=== PATIENT | male | born 1955 | race Caucasian/White ===

== ENCOUNTER 2017-05-05 15:35 | Emergency (ER) | payer BC ==
[2017-05-05 15:51] VITALS: BP 127/62
--- NOTE | 2017-05-05 16:16 | UC ---
Dizzy HPI HPI Summary: [ End ] Advised to go to ED for further work up 61 year old male with history of previous DM-2, gastric bypass, renal stones, family history of CAD presents with 2 weeks of cough, congestion, post nasal drip, sore throat. His mother in the hospital for pneumonia and other reasons at this time. Today patient was walking and felt dizzy, started to sweat (but has had chills the past few days) and chest tightness. Denies CP , palpitations , or someone sitting on chest. Denies previous cardiac issues. Has had numerous stress tests in the past and normal . He has had pneumonia in the past and it feels like that at this time. Mother with history of triple bypass at ago 60 and has over 40 stents per patient - History Of Current Complaint Chief Complaint: UCGeneralIllness Stated Complaint: UPPER RESPIRATORY COMPLAINT COUGH Time Seen by Provider: 05/05/17 15:58 Hx Obtained From: Patient Onset/Duration: Sudden Onset, Gradual Onset Timing: Intermittent Episode Lasting Severity Initially: Mild Severity Currently: Moderate Character: Lightheaded, Weak Aggravating Factor(s): Exertion Alleviating Factor(s): Rest Associated Signs And Symptoms: Positive: Negative, Diaphoresis, SOB - Risk Factors Cardiac Risk Factors: Diabetes, Elevated Lipids, Family History - Allergies/Home Medications Allergies/Adverse Reactions: Allergies Allergy/AdvReac Type Severity Reaction Status Date / Time NSAIDs AdvReac See Comment Verified 07/28/16 13:28 Home Medications: Home Medications Dextromethorphan-Phenylephrine [Tylenol Cold Multi-Sympto] 1 liq PO DAILY PRN [History Confirmed 05/05/17] PMH/Surg Hx/FS Hx/Imm Hx Previously Healthy: Yes Endocrine History: Diabetes - Surgical History Surgical History: Yes Surgery Procedure, Year, and Place: cholecystectomy 1993-. gastric bypass 2007 - Family History Known Family History: Positive: Cardiac Disease, Hypertension - Social History Alcohol Use: None Substance Use Type: Prescribed Smoking Status (MU): Never Smoked Tobacco Have You Smoked in the Last Year: No Review of Systems Constitutional: Chills, Fatigue ENT: Sore Throat, Sinus Congestion Respiratory: Shortness Of Breath Cardiovascular: Other - chest pressure All Other Systems Reviewed And Are Negative: Yes Physical Exam Triage Information Reviewed: Yes Appearance: Well-Appearing, No Pain Distress, Well-Nourished Vital Signs: Initial Vital Signs Temp 98 F 05/05/17 15:43 Pulse 88 05/05/17 15:43 Resp 18 05/05/17 15:43 BP 127/62 05/05/17 15:43 Pulse Ox 100 05/05/17 15:43 Vital Signs Reviewed: Yes Eye Exam: Normal ENT Exam: Normal Dental Exam: Normal Neck exam: Normal Neck: Positive: 1 Respiratory Exam: Normal Cardiovascular Exam: Normal Abdominal Exam: Normal Musculoskeletal Exam: Normal Neurological Exam: Normal Psychological Exam: Normal Skin Exam: Normal Diagnostics - EKG Cardiac Rhythm: Sinus: Normal, Other Rhythm: Normal - RBBB and inferior Q waves ii,iii,avf ST Segment: Normal Dizzy Course/Dx - Course Course Of Treatment: With history of DM-2 before gastric bypass, family history of CABG, and potential EKG changes will advise ED for further eval. Pt declined to go by ambulance and went AMA by car to ED. - Differential Dx/Diagnosis Provider Diagnoses: chest pain atypical - Physician Notifications Discussed Patient Care With: dr downing - dr downing at [place] [facility] at 1700 Discharge - Discharge Plan Condition: Guarded Disposition: AGAINST MEDICAL ADVICE Referrals: Noel Aponte MD [Primary Care Provider] - As Soon As Possible (After a thorough and more complete evaluation in the ED )
--- NOTE | 2017-05-05 16:42 | RAD ---
INDICATION: Midsternal chest tightness. Shortness of breath, cough, dizziness. COMPARISON: No relevant prior exams available on the [facility] PACS for comparison. TECHNIQUE: Dual energy PA and routine lateral views of the chest were obtained. REPORT: Mild eventration of the LEFT hemidiaphragm anteriorly. Clear lungs and pleural spaces. Negative for pneumothorax. The heart, pulmonary vasculature, and mediastinal contours are unremarkable. Unremarkable osseous structures for age. IMPRESSION: No evidence for acute intrathoracic disease.
== END 2017-05-05 17:08 | disposition left against medical advice (07) ==
LOC: UCCORT 15:35
DX: R07.89 Other chest pain (principal); R05 Cough; R09.82 Postnasal drip; J02.9 Acute pharyngitis, unspecified; R42 Dizziness and giddiness; R53.83 Other fatigue; E11.9 Type 2 diabetes mellitus without complications; Z87.442 Personal history of urinary calculi; Z98.84 Bariatric surgery status; Z90.49 Acquired absence of other specified parts of digestive tract; Z88.6 Allergy status to analgesic agent
CPT/HCPCS: 71020; 93005; 99212; G0463

== ENCOUNTER 2017-09-08 10:09 | Emergency (ER) | payer BC | END 2017-09-08 11:17 | disposition left against medical advice (07) | LOC: UCCORT 10:09 | DX: J02.9 Acute pharyngitis, unspecified (principal); Z53.21 Procedure and treatment not carried out due to patient leaving prior to being seen by health care provider ==

== ENCOUNTER 2017-09-08 18:18 | Emergency (ER) | payer BC ==
[2017-09-08 18:53] VITALS: BP 147/92
--- NOTE | 2017-09-08 19:10 | ED ---
Throat Pain/Nasal Congestion - HPI Summary HPI Summary: 17 yr old male with the complaint of sore throat. Onset of symptoms about 5 days ago, and associated with mild coughing, and mild hoarseness to voice. He denies runny nose or post nasal drip. Denies sinus pressure. He does state he has ear pain bilateral that seems to be coming from his sore throat. - History of Current Complaint Chief Complaint: UCRespiratory Time Seen by Provider: 09/08/17 18:52 - Allergies/Home Medications Allergies/Adverse Reactions: Allergies Allergy/AdvReac Type Severity Reaction Status Date / Time NSAIDs AdvReac See Comment Verified 09/08/17 18:53 PMH/Surg Hx/FS Hx/Imm Hx Previously Healthy: Yes Cardiovascular History: Reports: Hx Hypertension Psychiatric History: Reports: Hx Anxiety - panic attackes - Surgical History Surgery Procedure, Year, and Place: cholecystectomy 1993-. gastric bypass 2007 Infectious Disease History: Yes Infectious Disease History: Reports: Hx Shingles - center of abdomen, base of sternum Denies: Hx Clostridium Difficile, Hx Hepatitis, Hx Human Immunodeficiency Virus (HIV), Hx of Known/Suspected MRSA, Hx Tuberculosis, Hx Known/Suspected VRE , Hx Known/Suspected VRSA, History Other Infectious Disease, Traveled Outside the [place] in Last 30 Days - Family History Known Family History: Positive: Cardiac Disease, Hypertension - Social History Alcohol Use: None Substance Use Type: Reports: Prescribed Smoking Status (MU): Never Smoked Tobacco Have You Smoked in the Last Year: No Review of Systems Constitutional: Negative Positive: Sore Throat, Ear Ache Positive: Cough All Other Systems Reviewed And Are Negative: Yes Physical Exam Triage Information Reviewed: Yes Vital Signs On Initial Exam: Initial Vitals Temp Pulse Resp BP Pulse Ox 98.5 F 100 18 147/92 100 09/08/17 18:48 09/08/17 18:48 09/08/17 18:48 09/08/17 18:48 09/08/17 18:48 Vital Signs Reviewed: Yes Appearance: Positive: Well-Appearing, No Pain Distress Skin: Positive: Warm, Skin Color Reflects Adequate Perfusion Head/Face: Positive: Normal Head/Face Inspection Eyes: Positive: EOMI ENT: Positive: Pharyngeal erythema, TMs normal. Negative: Muffled voice, Hoarse voice, Sinus tenderness Neck: Positive: Supple, Nontender Respiratory/Lung Sounds: Positive: Clear to Auscultation, Breath Sounds Present Cardiovascular: Positive: RRR. Negative: Murmur Abdomen Description: Positive: Nontender Musculoskeletal: Positive: Strength/ROM Intact Neurological: Positive: Sensory/Motor Intact, Alert, Oriented to Person Place, Time, CN Intact II-III Psychiatric: Positive: Normal - Kamrar Coma Scale Best Eye Response: 4 - Spontaneous Best Motor Response: 6 - Obeys Commands Best Verbal Response: 5 - Oriented Diagnostics - Vital Signs Vital Signs Temp Pulse Resp BP Pulse Ox 09/08/17 18:48 98.5 F 100 18 147/92 100 - Laboratory Lab Statement: Any lab studies that have been ordered have been reviewed, and results considered in the medical decision making process. EENT Course/Dx - Course Course Of Treatment: 62 male with strep throat. - Diagnoses Provider Diagnoses: Strep pharyngitis, Hypertension Discharge - Discharge Plan Condition: Good Disposition: HOME Prescriptions: Amoxicillin PO (*) [Amoxicillin 500 MG CAP*] 500 mg PO TID #30 cap Patient Education Materials: Pharyngitis (ED), Hypertension (ED) Referrals: Noel Aponte MD [Primary Care Provider] -
[2017-09-08] MEDS ORDERED: Amoxicillin PO (*) 500 MG CAP PO ONE (19:37)
== END 2017-09-08 19:53 | disposition home or self-care (01) ==
LOC: UCCORT 18:18
DX: J02.0 Streptococcal pharyngitis (principal); I10 Essential (primary) hypertension; Z88.6 Allergy status to analgesic agent
CPT/HCPCS: 87502; 87651; 99212; A9270-GY; G0463

== ENCOUNTER 2017-09-24 15:32 | Emergency (ER) | payer BC ==
[2017-09-24 15:54] VITALS: BP 137/72
--- NOTE | 2017-09-24 17:22 | UC ---
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 " Here w/ his , speech pathologist. Most of history is provided by his . He has been "acutely" sick since 09/04/ was dx'd with pos strep at that time and sx resolved w/ amox. -woke up this morning w/ swollen uvula that was stuck to the base of his tongue. feels totally different than strep. no fevers/chills. no cough. no wheezing. no sinus pain/pressure. no n/v/d. -he is on lisinipril, no lip or tongue swelling. -c/o fatigue that has been going on for months. specifically requested PCP to do labs (results as above) in Jul. -psychiatrist started testosterone for level of 240. his anx/dep and psych sx signfiicantly improved as did fatigue. But insists somethinghappened 09/04 that caused something to change in him. - History of Current Complaint Chief Complaint: UCGeneralIllness Stated Complaint: SORE THROAT Time Seen by Provider: 09/24/17 16:20 - Allergies/Home Medications Allergies/Adverse Reactions: Allergies Allergy/AdvReac Type Severity Reaction Status Date / Time NSAIDs AdvReac See Comment Verified 09/24/17 15:53 PMH/Surg Hx/FS Hx/Imm Hx - Surgical History Surgical History: Yes Surgery Procedure, Year, and Place: cholecystectomy 1993-. gastric bypass 2007 - Family History Known Family History: Positive: Cardiac Disease, Hypertension - Social History Alcohol Use: None Substance Use Type: Prescribed Smoking Status (MU): Never Smoked Tobacco Have You Smoked in the Last Year: No Review of Systems Constitutional: Fatigue Skin: Negative Eyes: Negative ENT: Other - swollen uvula Respiratory: Negative Cardiovascular: Negative Gastrointestinal: Negative Genitourinary: Negative Motor: Negative Neurovascular: Negative Musculoskeletal: Negative Neurological: Negative Psychological: Negative Is Patient Immunocompromised?: No All Other Systems Reviewed And Are Negative: Yes Physical Exam Triage Information Reviewed: Yes Appearance: Well-Appearing, No Pain Distress, Well-Nourished - head down, ? asleep when I walk into exam room. Vital Signs: Initial Vital Signs Temp 98.5 F 09/24/17 15:49 Pulse 99 09/24/17 15:49 Resp 16 09/24/17 15:49 BP 137/72 09/24/17 15:49 Pulse Ox 100 09/24/17 15:49 Vital Signs Reviewed: Yes Eye Exam: Normal ENT: Positive: Pharyngeal erythema - + mild-mod swollen uvula w/o exudate. no tongue, lip or face swelling., TMs normal, Tonsillar exudate, Uvula midline. Negative: Tonsillar swelling, Hoarse voice, Sinus tenderness Dental Exam: Normal Neck exam: Normal Neck: Positive: Supple, Nontender, No Lymphadenopathy Respiratory: Positive: Lungs clear, Normal breath sounds, No respiratory distress, No accessory muscle use. Negative: Crackles, Rhonchi, Stridor, Wheezing Cardiovascular: Positive: RRR, No Murmur, Pulses Normal Abdomen Description: Positive: Nontender, Soft Musculoskeletal Exam: Normal Neurological Exam: Normal Psychological Exam: Normal Skin Exam: Normal Throat Pain/Nasal Course/Dx - Course Course Of Treatment: Discussed w /them the possibility of angioedema d/t lisinipril depsite the fact that he has been on it for years. he does mention that this has occured in past. I asked that they mention this to PCP and give serious consideration to d/c if not resolved or if lips/tongue/face swells or uvulitis recurs. They understood me well and are appreciative of this. -very unlikely to be mono in this age, but will test as it was unlikely to have strep at his age as well. they are pleased with this. -consider endocrine referral for fatigue and possibly eval for heart conditions ( he denies any CAD or DM). states that his psychiatric condition is the best it has been in years. - Differential Dx/Diagnosis Differential Diagnosis/HQI/PQRI: Laryngitis, Mononucleosis, Pharyngitis, URI Provider Diagnoses: uvulitis, fatigue Discharge - Discharge Plan Condition: Stable Disposition: HOME Prescriptions: Amoxicillin/Clavulanate TAB* [Augmentin TAB 875*] 875 mg PO BID #20 tab Patient Education Materials: Uvulitis (ED), Fatigue (ED) Referrals: Noel Aponte MD [Primary Care Provider] - 5 Days Additional Instructions: Citrus test is ordered. You can call for the results in a few days. You reported that your bloodwork including thyroid is normal, but you have known anemia. Please follow up with your PC for further follow up on the symptoms.
== END 2017-09-24 17:52 | disposition home or self-care (01) ==
LOC: UCCORT 15:32
DX: K12.2 Cellulitis and abscess of mouth (principal); R53.83 Other fatigue; Z88.6 Allergy status to analgesic agent
CPT/HCPCS: 36415; 86308; 86664; 86665; 99212; G0463

== ENCOUNTER 2018-03-28 18:38 | Emergency (ER) | payer BC ==
[2018-03-28 19:18] VITALS: BP 138/84
[2018-03-28] MEDS ORDERED: predniSONE TAB* 20 MG PO ONE (19:41)
--- NOTE | 2018-03-29 22:24 | UC ---
Skin Complaint HPI - HPI Summary HPI Summary: The patient is a 62 yo male with 13-15 insect bites that occurred while hiking a couple of days ago Itchy no f/c no tick bite no JACOB or myalgias - History of Current Complaint Chief Complaint: UCSkin Time Seen by Provider: 03/28/18 19:21 Stated Complaint: SKIN COMPLAINT Hx Obtained From: Patient Onset/Duration: Gradual Onset, Lasting Days Timing: Constant Onset Severity: Mild Current Severity: Mild Pain Intensity: 3 Pain Scale Used: 0-10 Numeric Location: Other - various Character: Swelling, Pruritus, Redness, Raised Associated Signs & Symptoms: Positive: Negative Related History: Insect Bite/Sting - Allergy/Home Medications Allergies/Adverse Reactions: Allergies Allergy/AdvReac Type Severity Reaction Status Date / Time NSAIDS (Non-Steroidal Allergy See Comment Verified 03/28/18 19:04 Anti-Inflamma Home Medications: Home Medications ALPRAZolam TAB* [Xanax TAB*] 1 tab TID PRN 03/28/18 [History Confirmed 03/28/18] ARIPiprazole TAB* [Abilify TAB*] 5 mg BEDTIME 03/28/18 [History Confirmed 03/28] OXcarbazepine TAB(*) [Trileptal 300 mg TAB(*)] 450 mg BEDTIME 03/28/18 [History Confirmed 03/28/18] Propranolol TAB* [Inderal TAB*] 60 mg BEDTIME 03/28/18 [History Confirmed ] Review of Systems Constitutional: Negative Skin: Negative Eyes: Negative ENT: Negative Respiratory: Negative Cardiovascular: Negative Gastrointestinal: Negative Genitourinary: Negative Motor: Negative Neurovascular: Negative Musculoskeletal: Negative Neurological: Negative Psychological: Negative Is Patient Immunocompromised?: No All Other Systems Reviewed And Are Negative: Yes PMH/Surg Hx/FS Hx/Imm Hx Previously Healthy: Yes Cardiovascular History: Hypertension Respiratory History: Asthma Psychological History: Bipolar Disorder - Surgical History Surgical History: Yes Surgery Procedure, Year, and Place: cholecystectomy 1993-. gastric bypass 2007. Kidney stones - Family History Known Family History: Positive: Cardiac Disease, Hypertension - Social History Alcohol Use: None Substance Use Type: Prescribed Smoking Status (MU): Never Smoked Tobacco Have You Smoked in the Last Year: No Physical Exam Triage Information Reviewed: Yes Appearance: Well-Appearing, No Pain Distress, Well-Nourished Vital Signs: Initial Vital Signs Temp 97.6 F 03/28/18 19:10 Pulse 84 03/28/18 19:10 Resp 16 03/28/18 19:10 BP 138/84 03/28/18 19:10 Pulse Ox 100 03/28/18 19:10 Eyes: Positive: Conjunctiva Clear ENT: Positive: Hearing grossly normal. Negative: Nasal congestion, Nasal drainage, Trismus, Muffled voice, Hoarse voice Neck: Positive: Supple, Nontender, No Lymphadenopathy Respiratory: Positive: Lungs clear, Normal breath sounds, No respiratory distress, No accessory muscle use Cardiovascular: Positive: RRR, No Murmur Musculoskeletal: Positive: ROM Intact, No Edema Neurological: Positive: Alert Skin Exam: Other - 13-15 insect bites on neck/back/arms with about 3-5 cm area of surrounding erythema Course/Dx - Diagnoses Provider Diagnoses: local reaction to insect stings Discharge - Sign-Out/Discharge Documenting (check all that apply): Patient Departure - Discharge Plan Condition: Stable Disposition: HOME Prescriptions: Cephalexin CAP* [Keflex CAP*] 500 mg PO TID #21 cap predniSONE [Prednisone 20 MG TAB] 60 mg PO DAILY #6 tab Patient Education Materials: Insect Bite or Sting (ED) Referrals: Noel Aponte MD [Primary Care Provider] - If Needed - Billing Disposition and Condition Condition: STABLE Disposition: Home
== END 2018-03-28 19:53 | disposition home or self-care (01) ==
LOC: UCCORT 18:38
DX: S10.96XA Insect bite of unspecified part of neck, initial encounter (principal); S20.469A Insect bite (nonvenomous) of unspecified back wall of thorax, initial encounter; S40.862A Insect bite (nonvenomous) of left upper arm, initial encounter; S40.861A Insect bite (nonvenomous) of right upper arm, initial encounter; W57.XXXA Bitten or stung by nonvenomous insect and other nonvenomous arthropods, initial encounter; Y93.01 Activity, walking, marching and hiking; Y92.9 Unspecified place or not applicable; I10 Essential (primary) hypertension; J45.909 Unspecified asthma, uncomplicated; F31.9 Bipolar disorder, unspecified; Z88.6 Allergy status to analgesic agent; Z82.49 Family history of ischemic heart disease and other diseases of the circulatory system
CPT/HCPCS: 99212; G0463; J7512

== ENCOUNTER 2018-09-19 07:54 | Emergency (ER) | payer BC ==
--- OUTSIDE RECORDS SUMMARY | 2018-09-19 08:04 | XMS REPORT ---
:1955 External Reference #:[id number] Author Organization [facility] Address [address], [address] [place] [address] Phone [phone] Care Team Providers Name Role Phone Noel Aponte MD Care Team Information Spout Worker Unavailable Noel Aponte MD Primary Care Physician Unavailable Payers Type Date Identification Numbers Payment Provider Subscriber Commercial Policy Number: [id number] [employer] Osman Gilbert PayID: [id number] [address] [address] [place] [address] Problems Description No Information Family History Date Family Member(s) Problem(s) Comments Father CAD Father Hypertension Mother CAD Social History Type Date Description Comments Marital Status Occupation Retired Work Status Retired Cigarette Use Never Smoked Cigarettes ETOH Use Denies alcohol use Smoking Patient has never smoked Recreational Drug Use Denies Drug Use Daily Caffeine Consumes on average 4 sodas per day Exercise Type/Frequency Exercises sporadically Allergies, Adverse Reactions, Alerts Date Description Reaction Status Severity Comments 11/24/2017 NKDA active Medications Medication Date Status Form Strength Qnty SIG Indications Ordering Provider Ventolin HFA / Active Aerosol 108(90Base 8gm take 2 Kheti, 0000 ) mcg/Act puffs every MD Alfredo 6 hours as needed for shortness of breath. Venlafaxine / Active Caps ER 150mg 1 by mouth Unknown HCL ER 0000 24HR bid Bupropion HCL / Active Tablets 300mg 1 by mouth Unknown ER (XL) 0000 ER 24HR every day Propranolol / Active Tablets 60mg take one by Unknown HCL 0000 mouth daily Lisinopril / Active Tablets 10mg 1 by mouth Unknown 0000 every day Adderall / Active Tablets 15mg 1 tab by Unknown 0000 mouth once a day ::: Alprazolam / Active Tablets 2mg 1 po tid Unknown 0000 Symbicort 11/24/ Hx Aerosol 80-4.5mcg/ 10.2un inhale one J45.20 Kheti, 2018 - Act its puff by MD Alfredo 08/28/ mouth twice 2018 a day. rinse mouth after use Zolpidem / Hx Tablets 10mg 1 po qd Unknown Tartrate 0000 Vital Signs Date Vital Result Comment 08/28/2018 BP Systolic Sitting Right Arm 134 mmHg BP Diastolic Sitting Right Arm 68 mmHg Heart Rate 94 /min Respiratory Rate 18 /min Weight 229.00 lb O2 % BldC Oximetry 97 % Ora 02/23/2018 BP Systolic Sitting Right Arm 160 mmHg BP Diastolic Sitting Right Arm 90 mmHg Heart Rate 90 /min Respiratory Rate 18 /min Weight 235.00 lb O2 % BldC Oximetry 96 % Room air 11/24/2017 BP Systolic Sitting Left Arm 142 mmHg BP Diastolic Sitting Left Arm 82 mmHg Heart Rate 95 /min Respiratory Rate 18 /min Weight 240.00 lb O2 % BldC Oximetry 100 % 11/01/2017 BP Systolic Sitting Right Arm 152 mmHg BP Diastolic Sitting Right Arm 88 mmHg Heart Rate 78 /min Respiratory Rate 16 /min Weight 243.00 lb O2 % BldC Oximetry 100 % Ora Results Test Date Test Result H/L Range Note Antineutrophil 11/01/2017 Cytoplasmic (C-Anca) <1:20 titer Neg:<1:20 1 Cytoplasmic AB Perinuclear (P-Anca) <1:20 titer Neg:<1:20 1, 2 Atypical pANCA <1:20 titer Neg:<1:20 1, 3 Comprehensive Bridgette Panel 11/01/2017 Anti-Dna Antibody ([place]) <1 IU/mL 0- 9 1, 4 SM Antibody <0.2 AI 0.0-0.9 1 LABELS MOLDER Antibody <0.2 AI 0.0-0.9 1 Sjogrens Antibodies (Ssa) <0.2 AI 0.0-0.9 1 Antichromatin Antibodies <0.2 AI 0.0-0.9 1 Carmen-1 Antibody <0.2 AI 0.0-0.9 1 Sjogrens Antibodies (SSB) <0.2 AI 0.0-0.9 1 Centromere B Antibodies < 0.2 AI 0.0-0.9 1 Scleroderma Antibodies, SCL-70 <0.2 AI 0.0-0.9 1 See below: . 1, 5 Liver Function Tests 11/01/2017 Total Protein 7.2 g/dL 6.4-8.2 1 Albumin 3.6 g/dL 3.4-5.0 1 Globulin 3.6 g/dL 1.9-4.3 1 Alb/Glob 1.0 ratio 1 Bilirubin,Total 0.6 mg/dL 0.2-1.0 1 Bilirubin,Direct 0.1 mg/dL 0.0-0.2 1 Bilirubin,Indirect 0.5 mg/dL 0.0-0.9 1 Sgot/Ast 14 U/L Low 15-37 1, 6 SGPT/Alt 23 U/L 12-78 1 Alkaline Phosphatase 82 U/L 45-117 1 1 R53.83 2 The presence of positive fluorescence exhibiting P-ANCA or C-ANCA patterns alone is not specific for the diagnosis of Dave's Granulomatosis (WG) or microscopic polyangiitis. Decisions about treatment should not be based solely on ANCA IFA results. The International ANCA Group Consensus recommends follow up testing of positive sera with both GA- 3 and MPO-ANCA enzyme immunoassays. As many as 5% serum samples are positive only by EIA. Ref. AM J Clin Pathol 1999;111:507-513. 3 The atypical pANCA pattern has been observed in a significant percentage of patients with ulcerative colitis, primary sclerosing cholangitis and autoimmune hepatitis. 4 Negative <5 Equivocal 5 - 9 Positive >9 5 Autoantibody Disease Association Condition Frequency --------- Antinuclear Antibody, SLE, mixed connective Direct (BRIDGETTE-D) tissue diseases --------- dsDNA SLE 40 - 60% --------- Chromatin Drug induced SLE 90% SLE 48 - 97% --------- SSA (Ro) SLE 25 - 35% Sjogren's Syndrome 40 - 70% Lupus 100% --------- SSB (La) SLE 10% Sjogren's Syndrome 30% --------- Sm (anti-Castro) SLE 15 - 30% --------- LABELS MOLDER Mixed Connective Tissue Disease 95% (U1 nRNP, SLE 30 - 50% anti-ribonucleoprotein) Polymyositis and/or Dermatomyositis 20% --------- Scl-70 (antiDNA Scleroderma (diffuse) 20 - 35% topoisomerase) Crest 13% --------- Carmen-1 Polymyositis and/or Dermatomyositis 20 - 40% --------- Centromere B Scleroderma - Crest variant 80% Performed at: - [facility] [address] [id number] Operator Vacuum: Nora Hernandez MD, Phone: [phone] Performed at: [facility] [id number] Operator Vacuum: Jj Ramos MD, Phone: [phone] Values below the stated reference ranges of AST and ALT can be seen in normal populations. Clinical correlation is suggested. Procedures Date CPT Code Description Status 11/01/2017 17898 Bronchospasm Provocation Evaluation Multi Spirometric Completed Determinati 11/01/2017 18141 Spirometry Completed 10/28/2014 15550 EKG Interpretation And Report Only Completed 12/23/2011 46250 EKG Interpretation And Report Only Completed Encounters Type Date Location Provider CPT E/M Dx Office Visit 08/28/2018 2:45p [place] [address] J45.20 Office Visit 02/23/2018 2:45p [place] [address] J45.20 Office Visit 11/24/2017 4:00p [place] [address] J45.20 R53.83 Office Visit 11/01/2017 11:30a [place] [address] R06.02 R53.83 Office Visit 10/28/2014 1:52p Cardiology Office [place], [phone] Jose A, [facility] Plan of Care Future Appointment(s):08/28/2019 1:30 pm - Alfredo Tang MD at [id number]/17 /2018 - Alfredo Tang MDJ45.20 Mild intermittent asthma, uncomplicatedFollow up: 1 year.
[2018-09-19 08:11] VITALS: BP 130/80
--- NOTE | 2018-09-19 08:27 | UC ---
Respiratory Complaint HPI - HPI Summary HPI Summary: 63 y/o male with 9 days hx of cough cough is productive with yellow sputum + nasal congestion, pnd, sinus pain and pressure, severe sore throat fever, chills and body aches - History of Current Complaint Chief Complaint: UCRespiratory Stated Complaint: SORE THROAT,EARS,CHEST CONGESTION Time Seen by Provider: 09/19/18 08:07 Hx Obtained From: Patient Onset/Duration: Sudden Onset, Lasting Days - 9, Still Present Timing: Constant Severity Initially: Moderate Severity Currently: Moderate Pain Intensity: 3 Character: Cough: Productive Aggravating Factors: Exertion, Deep Breaths Alleviating Factors: Nothing Associated Signs And Symptoms: Positive: Fever, Chills, Wheezing, URI, Nasal Congestion, Sinus Discomfort. Negative: Dyspnea, Pleuritic Chest Pain, Hemoptysis, Dizziness, Calf Pain, Calf Swelling, Hoarseness - Allergies/Home Medications Allergies/Adverse Reactions: Allergies Allergy/AdvReac Type Severity Reaction Status Date / Time NSAIDS (Non-Steroidal Allergy See Comment Verified 09/19/18 08:05 Anti-Inflamma Home Medications: Home Medications Ascorbic Acid TAB* [Vitamin C TAB*] 500 mg PO DAILY 09/19/18 [History Confirmed 09/19/18] Calcium Carbonate/Vitamin D3 [Calcium/Vitamin D] 2 cap PO DAILY 09/19/18 [ History Confirmed 09/19/18] Dextroamphetamine/Amphetamine [Dextroamp-Amphetamin 10 mg Tab] 15 mg PO DAILY [History Confirmed 09/19/18] Iron 28 mg PO DAILY 09/19/18 [History Confirmed 09/19/18] PARoxetine HCL TAB* [Paxil TAB*] 20 mg PO DAILY 09/19/18 [History Confirmed 04/30] Vitamin B Complex [Super B-50 Complex] 1 each PO DAILY 09/19/18 [History Confirmed 09/19/18] diPHENhydraMINE PO* [Benadryl PO 25 MG TAB*] 25 mg PO BEDTIME 09/19/18 [History Confirmed 09/19/18] risperiDONE TAB* [RisperDAL*] 1 mg PO DAILY 09/19/18 [History Confirmed 09/19/18 ] PMH/Surg Hx/FS Hx/Imm Hx Cardiovascular History: Hypertension Respiratory History: Asthma Psychological History: Anxiety, Depression - Surgical History Surgical History: Yes Surgery Procedure, Year, and Place: cholecystectomy 1993-. gastric bypass 2007. Kidney stones - Family History Known Family History: Positive: Cardiac Disease, Hypertension - Social History Alcohol Use: None Substance Use Type: Prescribed Smoking Status (MU): Never Smoked Tobacco Have You Smoked in the Last Year: No Review of Systems All Other Systems Reviewed And Are Negative: Yes Constitutional: Positive: Fever, Chills, Fatigue Skin: Positive: Negative Eyes: Positive: Negative ENT: Positive: Sore Throat, Nasal Discharge Respiratory: Positive: Cough Cardiovascular: Positive: Negative Is Patient Immunocompromised?: No Physical Exam Triage Information Reviewed: Yes Appearance: Well-Appearing, No Pain Distress, Well-Nourished Vital Signs: Initial Vital Signs Temp 101.3 F 09/19/18 08:05 Pulse 86 09/19/18 08:05 Resp 18 09/19/18 08:05 BP 130/80 09/19/18 08:05 Pulse Ox 99 09/19/18 08:05 Vital Signs Reviewed: Yes Eye Exam: Normal Eyes: Positive: Conjunctiva Clear ENT: Positive: Normal ENT inspection, Hearing grossly normal, Pharyngeal erythema, Nasal congestion, TMs normal. Negative: TM bulging, TM dull, TM red, Tonsillar swelling, Tonsillar exudate Neck: Positive: Supple, Nontender, No Lymphadenopathy Respiratory: Positive: Chest non-tender, Lungs clear, Normal breath sounds, No respiratory distress Cardiovascular: Positive: RRR, No Murmur, Pulses Normal Skin Exam: Normal UC Diagnostic Evaluation - Laboratory O2 Sat by Pulse Oximetry: 99 Respiratory Course/Dx - Differential Dx/Diagnosis Provider Diagnosis: Influenza A Discharge - Sign-Out/Discharge Documenting (check all that apply): Patient Departure All imaging exams completed and their final reports reviewed: No Studies - Discharge Plan Condition: Stable Disposition: HOME Referrals: Noel Aponte MD [Primary Care Provider] - - Billing Disposition and Condition Condition: STABLE Disposition: Home
== END 2018-09-19 08:35 | disposition home or self-care (01) ==
LOC: UCCORT 07:54
DX: J09.X2 Influenza due to identified novel influenza A virus with other respiratory manifestations (principal); Z88.6 Allergy status to analgesic agent; I10 Essential (primary) hypertension; F41.8 Other specified anxiety disorders
CPT/HCPCS: 87651; 99212; G0463

== ENCOUNTER 2019-05-14 14:36 | Emergency (ER) | payer BC ==
[2019-05-14 15:26] VITALS: BP 131/77
--- NOTE | 2019-05-14 16:04 | UC ---
Ear Complaint HPI - HPI Summary HPI Summary: 63yo male c/o intermittent rt ear pain x 1 month. Pain is sharp and lasts a few seconds. Hx TMJ Syndrome, patient reports this does not feel like TMJ Syndrome. No URI Sx. No fever, No rash. No dental pain. No pain with swallowing. - History of Current Complaint Chief Complaint: UCEar Stated Complaint: RIGHT EAR PAIN Time Seen by Provider: 05/14/19 15:22 Pain Intensity: 8 - Allergies/Home Medications Allergies/Adverse Reactions: Allergies Allergy/AdvReac Type Severity Reaction Status Date / Time NSAIDS (Non-Steroidal Allergy See Comment Verified 05/14/19 15:26 Anti-Inflamma Home Medications: Home Medications ALPRAZolam [Xanax Xr] 1.5 mg PO TID PRN 05/14/19 [History Confirmed 05/14/19] Albuterol HFA INHALER* [Ventolin HFA Inhaler*] 2 puff INH Q4H PRN 05/14/19 [ History Confirmed 05/14/19] Budesonide/Formote 80/4.5(NF) [Symbicort 80/4.5 (NF)] 1 puff INH BID 05/14/19 [ History Confirmed 05/14/19] Dextroamphetamine/Amphetamine [Adderall Xr 15 mg Capsule] 15 mg PO DAILY [History Confirmed 05/14/19] Dextroamphetamine/Amphetamine [Adderall Xr 15 mg Capsule] 15 mg PO DAILY [History Confirmed 05/14/19] Venlafaxine ER (NF) [Effexor ER (NF)] 150 mg PO DAILY 05/14/19 [History Confirmed 05/14/19] buPROPion SR TAB* [Wellbutrin SR TAB*] 300 mg PO DAILY 05/14/19 [History Confirmed 05/14/19] PMH/Surg Hx/FS Hx/Imm Hx Previously Healthy: Yes Cardiovascular History: Hypertension - Surgical History Surgical History: Yes Surgery Procedure, Year, and Place: cholecystectomy 1993-. gastric bypass 2007. Kidney stones - Family History Known Family History: Positive: Cardiac Disease, Hypertension - Social History Alcohol Use: None Substance Use Type: Prescribed Smoking Status (MU): Never Smoked Tobacco Have You Smoked in the Last Year: No Review of Systems All Other Systems Reviewed And Are Negative: Yes Constitutional: Positive: Negative Skin: Positive: Negative Eyes: Positive: Negative ENT: Positive: Ear Ache Respiratory: Positive: Negative Cardiovascular: Positive: Negative Gastrointestinal: Positive: Negative Motor: Positive: Negative Neurovascular: Positive: Negative Musculoskeletal: Positive: Negative Neurological: Positive: Negative Psychological: Positive: Negative Is Patient Immunocompromised?: No Physical Exam Triage Information Reviewed: Yes Appearance: Well-Appearing, No Pain Distress, Well-Nourished Vital Signs: Initial Vital Signs Temp 98.8 F 05/14/19 15:22 Pulse 79 05/14/19 15:22 Resp 16 05/14/19 15:22 BP 131/77 05/14/19 15:22 Pulse Ox 98 05/14/19 15:22 Vital Signs Reviewed: Yes Eye Exam: Normal Eyes: Positive: Conjunctiva Clear ENT: Positive: Pharynx normal, Other - Rt TM obscured by cerumen. NL lt TM. No tenderness to palpation rt tragus. Parotid and sub mandibular glands NL/Non tender. NL dentition. No rash. Dental Exam: Normal Neck: Positive: Supple, Nontender Respiratory: Positive: Lungs clear, Normal breath sounds, No respiratory distress Cardiovascular: Positive: RRR Musculoskeletal: Positive: Strength Intact, ROM Intact Neurological: Positive: Alert, Muscle Tone Normal Psychological: Positive: Age Appropriate Behavior Skin Exam: Normal Ear Complaint Course/Dx - Course Course Of Treatment: rt ear irrigation by nursing with minimal cerumen change. Plan is to continue OTC ear wax removal drops and F/U with ENT. Pt has seen Dr Hernandez in the past and will F/U with him. - Differential Dx/Diagnosis Provider Diagnosis: Right ear pain, Right ear impacted cerumen Discharge ED - Sign-Out/Discharge Documenting (check all that apply): Patient Departure All imaging exams completed and their final reports reviewed: No Studies - Discharge Plan Condition: Stable Disposition: HOME Patient Education Materials: Cerumen Impaction (ED), Earache (ED) Referrals: Noel Aponte MD [Primary Care Provider] - Adrian Hernandez MD [Medical Doctor] - Additional Instructions: FOLLOW UP WITH ENT, DR HERNANDEZ, IF NOT COMPLETELY IMPROVED. GET REEVALUATED SOONER IF YOUR CONDITION WORSENS OR ANY QUESTIONS OR CONCERNS. - Billing Disposition and Condition Condition: STABLE Disposition: Home
== END 2019-05-14 16:14 | disposition home or self-care (01) ==
LOC: UCCORT 14:36
DX: H92.01 Otalgia, right ear (principal); H61.21 Impacted cerumen, right ear; I10 Essential (primary) hypertension; Z88.6 Allergy status to analgesic agent
CPT/HCPCS: 99212; G0463

== ENCOUNTER 2019-07-29 07:39 | Emergency (ER) | payer BC ==
[2019-07-29] MEDS ORDERED: Meclizine TAB* 12.5 MG PO ONE (07:50)
[2019-07-29] MEDS ORDERED: NS 0.9% 1000 ML** 1,000 ML IV ONE (07:52)
--- NOTE | 2019-07-29 08:02 | ED ---
Dizziness - HPI Summary HPI Summary: Patient is a 63 y/o M w/ Hx of HTN, asthma, and anxiety who presents to [facility] via EMS with complaints of dizziness and N/V. Patient had slept on the recliner last night. Sx onset when he got up this morning, 07/29/19. He denies JACOB, visual changes, SOB, CP, and palpitations. EMS administered Zofran 4 mg and 500 mL of fluids with slight improvement in Sx. On triage, pain is denied, movement is noted to aggravate Sx. Home medications and allergies are reviewed. - History Of Current Complaint Chief Complaint: EDDizziness Stated Complaint: CHEST PAIN Hx Obtained From: Patient Onset/Duration: Still Present Timing: Hours Severity Currently: None Character: Dizzy Aggravating Factor(s): Other - movement Associated Signs And Symptoms: Positive: Nausea, Vomiting, Other: - negative - JACOB. Negative: Chest Pain, SOB, Palpitations, Visual Changes - Allergies/Home Medications Allergies/Adverse Reactions: Allergies Allergy/AdvReac Type Severity Reaction Status Date / Time NSAIDS (Non-Steroidal Allergy See Comment Verified 07/29/19 08:00 Anti-Inflamma PMH/Surg Hx/FS Hx/Imm Hx Cardiovascular History: Reports: Hx Hypertension Respiratory History: Reports: Hx Asthma History: Reports: Hx Kidney Stones Psychiatric History: Reports: Hx Anxiety - panic attackes - Surgical History Surgery Procedure, Year, and Place: cholecystectomy 1993-. gastric bypass 2007. Kidney stones Infectious Disease History: No Infectious Disease History: Reports: Hx Shingles - center of abdomen, base of sternum Denies: Hx Clostridium Difficile, Hx Hepatitis, Hx Human Immunodeficiency Virus (HIV), Hx of Known/Suspected MRSA, Hx Tuberculosis, Hx Known/Suspected VRE , Hx Known/Suspected VRSA, History Other Infectious Disease, Traveled Outside the [place] in Last 30 Days - Family History Known Family History: Positive: Cardiac Disease, Hypertension - Social History Alcohol Use: None Hx Substance Use: Yes Substance Use Type: Reports: Prescribed Substance Use Comment - Amount & Last Used: tramadol Hx Tobacco Use: No Smoking Status (MU): Never Smoked Tobacco Have You Smoked in the Last Year: No Review of Systems Eyes: Other - negative - visual changes Negative: Palpitations, Chest Pain Negative: Shortness Of Breath Positive: Vomiting, Nausea Neurological: Other - positive - dizziness All Other Systems Reviewed And Are Negative: Yes Physical Exam - Summary Physical Exam Summary: VITAL SIGNS: Reviewed. GENERAL: Patient is a well-developed and nourished MALE who is lying comfortable in the stretcher. Patient is not in any acute respiratory distress. HEAD AND FACE: No signs of trauma. No ecchymosis, hematomas or skull depressions. No sinus tenderness. EYES: PERRLA, EOMI x 2, No injected conjunctiva, no nystagmus. EARS: Hearing grossly intact. Ear canals and tympanic membranes are within normal limits. MOUTH: Oropharynx within normal limits. NECK: Supple, trachea is midline, no adenopathy, no JVD, no carotid bruit, no c- spine tenderness, neck with full ROM. CHEST: Symmetric, no tenderness at palpation. LUNGS: Clear to auscultation bilaterally. No wheezing or crackles. CVS: Regular rate and rhythm, S1 and S2 present, no murmurs or gallops appreciated. ABDOMEN: Soft, non-tender. No signs of distention. No rebound, no guarding, and no masses palpated. Bowel sounds are normal. EXTREMITIES: FROM in all major joints, no edema, no cyanosis or clubbing. NEURO: Alert and oriented x 3. No acute neurological deficits. Speech is normal and follows commands. GCS 15. SKIN: Dry and warm. Triage Information Reviewed: Yes Vital Signs On Initial Exam: Initial Vitals Temp Pulse Resp BP Pulse Ox 97.0 F 67 17 138/81 97 07/29/19 07:45 07/29/19 07:45 07/29/19 07:45 07/29/19 07:45 07/29/19 07:45 Vital Signs Reviewed: Yes Procedures - Sedation Patient Received Moderate/Deep Sedation with Procedure: No Diagnostics - Vital Signs Vital Signs Temp Pulse Resp BP Pulse Ox 07/29/19 07:45 97.0 F 67 17 138/81 97 - Laboratory Result Diagrams: 07/29/19 08:03 07/29/19 07:55 Lab Statement: Any lab studies that have been ordered have been reviewed, and results considered in the medical decision making process. - Radiology CXR Radiology Interpretation Completed By: Radiologist Summary of Radiographic Findings: IMPRESSION: No radiographic evidence of acute cardiopulmonary disease. This report was reviewed by Dr. Westbrook. - CT BRAIN CT CT Interpretation Completed By: Radiologist Summary of CT Findings: IMPRESSION: In the white matter tracts of the right frontal lobe there is a 1.5 cm focus. of hypoattenuation. There are no prior brain CTs for comparison to comment on chronicity. Differential includes chronic microvascular disease but an acute/subacute finding is not. completely excluded. If the patient is exhibiting focal neurologic deficits, superior. characterization can be acquired with MRI. This report was reviewed by Dr. Westbrook - EKG 0742 Cardiac Rate: NL - 68 BPM Summary of EKG Findings: EKG taken at 0742 reveals normal sinus rhythm at 68 BPM with t-wave inversion in 3, right bundle branch block, similar to prior on . Dizzy Course/Dx - Course Assessment/Plan: Patient is a 63-year-old male who presents to the emergency department with chief complaint having dizziness similar nausea and vomiting. Blood test results without any significant abnormality except for WBCs of 12.1, slight anemia with a hemoglobin of 13.8, hematocrit of 41. Glucose is 181. EKG shows a normal sinus rhythm without any ST elevations. Head CT IMPRESSION: In the white matter tracts of the right frontal lobe there is a 1.5 cm focus of hypoattenuation. There are no prior brain CTs for comparison to comment on chronicity. Differential includes chronic microvascular disease but an acute/ subacute finding is notcompletely excluded. If the patient is exhibiting focal neurologic deficits, superior characterization can be acquired with MRI. CXR IMPRESSION: No radiographic evidence of acute cardiopulmonary disease. I discuss my physical exam and findings with Dr. Chung and he recommends for the patient to be given an aspirin and to get an MRI today. Therefore I spoke with Dr. Narvaez and he will call the team for the MRI. MRI IMPRESSION: 1. MR FINDINGS ARE MOST CONSISTENT WITH CHRONIC MICROVASCULAR DISEASE. IF THERE EXISTS A. CLINICAL SUSPICION FOR DEMYELINATING DISEASE THEN CONTRAST-ENHANCED IMAGING COULD BE. ACQUIRED TO LOOK FOR EVIDENCE OF ACTIVE INFLAMMATION. 2. THERE IS NO MR EVIDENCE OF ACUTE INFARCTION. 3. LEFT MAXILLARY SINUS MUCOSAL DISEASE. I discussed case with Dr. Chung from neurology and he recommends for the patient to be discharged home with follow-up at his office as needed. The patient was will follow with the primary care physician as needed. - Diagnoses Provider Diagnoses: Vertigo - Provider Notifications Discussed Care Of Patient With: Zak Narvaez Time Discussed With Above Provider: 10:31 Instructed by Provider To: Other - 1031 - Brain CT was discussed with Dr. Narvaez. Neurology consult is recommended. 1100 - Dr. Chung had been contacted , he recommended MRI and ASA. MRI is approved by Dr. Narvaez. 1159 - Dr. Chung in ED, CT was reviewed. MRI pending. 1220 - Discussed MRI with Dr. Chung, Dr. Chung recommends discharge and follow up in his office. Discharge ED - Sign-Out/Discharge Documenting (check all that apply): Patient Departure - discharge - Discharge Plan Condition: Stable Disposition: HOME Prescriptions: Meclizine TAB* [Antivert 12.5 TAB*] 25 mg PO TID PRN #30 tab PRN Reason: Vertigo Patient Education Materials: Vertigo (ED) Referrals: Noel Aponte MD [Primary Care Provider] - Oliver Chung MD [Medical Doctor] - Additional Instructions: PLEASE RETURN TO ED FOR ANY NEW OR WORSENING SYMPTOMS. PLEASE FOLLOW UP WITH YOUR PRIMARY CARE PHYSICIAN AND NEUROLOGY WITHIN THE NEXT THREE DAYS. - Billing Disposition and Condition Condition: STABLE Disposition: Home - Attestation Statements Document Initiated by Stuibe: Yes Documenting Scribe: Marky Feldman Provider For Whom Clarence is Documenting (Include Credential): Dr. Nestor Westbrook MD Scribe Attestation: I, Marky Feldman, scribed for Dr. Nestor Westbrook MD on 07/29/19 at 1845. Scribe Documentation Reviewed: Yes Provider Attestation: The documentation as recorded by the scribe, Marky Feldman accurately reflects the service I personally performed and the decisions made by me, Dr. Nestor Westbrook MD Status of Scribe Document: Viewed
[2019-07-29 08:12] LABS: ABS Basophils 0.1 10^3/ul (0-0.2); ABS Eosinophils 0.2 10^3/ul (0-0.6); ABS Lymphocytes 2.2 10^3/ul (1.0-4.8); ABS Monocytes 0.7 10^3/ul (0-0.8); Eosinophil % 1.9 %; Hematocrit 41 % (42-52); Hemoglobin 13.8 g/dL (14.0-18.0); Lymphocyte % 17.9 %; Mean Corpuscular HGB Conc 34 g/dL (31-36); Mean Corpuscular Hemoglobin 29 pg (27-31); Mean Corpuscular Volume 88 fL (80-94); Mean Platelet Volume 7.7 fL (7.4-10.4); Nucleated Red Blood Cells % 0.1; Platelet Count 238 10^3/uL (150-450); Red Cell Distribution Width 13 % (10-15); White Blood Count 12.1 10^3/uL (3.5-10.8)
[2019-07-29 08:28] LABS: Albumin 4.1 g/dL (3.2-5.2); Albumin/Globulin Ratio 1.6 (1-3); BUN/Creatinine Ratio 14.5 (8-20); C Reactive Protein 1.2 mg/L (<8.01); Calcium 8.8 mg/dL (8.6-10.3); EGFR African American 125.8 (>60); EGFR Non-African American 103.9 (>60); Globulin 2.5 g/dL (2-4); Potassium 3.8 mmol/L (3.5-5.0); Total Bilirubin 0.8 mg/dL (0.2-1.0); Total Protein 6.6 g/dL (6.4-8.9)
[2019-07-29 08:29] LABS: Troponin I 0.01 ng/mL (<0.04)
[2019-07-29 09:40] LABS: TSH (Thyroid Stimulating Horm) 1.25 mcIU/mL (0.34-5.60)
[2019-07-29] MEDS ORDERED: Aspirin 81 mg CHEW TAB* 81 MG TAB.CHEW PO ONE (10:47)
[2019-07-29] MEDS ORDERED: buPROPion SR TAB.SR* 150 MG PO ONE (10:50)
[2019-07-29] MEDS ORDERED: Venlafaxine EXT RELEASE CAP* 75 MG PO ONE (10:51)
[2019-07-29] MEDS ORDERED: Lisinopril TAB* 10 MG PO ONE (10:52)
[2019-07-29 11:42] LABS: Urine Appearance Clear; Urine Color Yellow
[2019-07-29 11:43] LABS: Urine Bilirubin Negative (Negative); Urine Blood Negative (Negative); Urine Glucose Negative (Negative); Urine Ketones Negative (Negative); Urine Nitrite Negative (Negative); Urine Protein Negative (Negative); Urine Urobilinogen Negative (Negative)
[2019-07-29 11:47] LABS: Urine Bacteria Absent (Absent); Urine Red Blood Cell 1+(3-5/hpf) (Absent); Urine White Blood Cell 1+(6-10/hpf) (Absent)
[2019-07-29 13:30] VITALS: BP 152/99
== END 2019-07-29 13:34 | disposition home or self-care (01) ==
LOC: ED 07:39
DX: R42 Dizziness and giddiness (principal); I10 Essential (primary) hypertension; J45.909 Unspecified asthma, uncomplicated; F41.9 Anxiety disorder, unspecified; Z87.442 Personal history of urinary calculi; Z88.6 Allergy status to analgesic agent; Z90.49 Acquired absence of other specified parts of digestive tract; Z98.84 Bariatric surgery status; Z79.899 Other long term (current) drug therapy
CPT/HCPCS: 36415; 70450; 70551; 71046; 80053; 81003; 83605; 83735; 84443; 84484; 85025; 86140; 87086; 93005; 96360; 96361; 99284; A9270-GY